=== PATIENT | female | born 1995 | race Caucasian/White ===

== ENCOUNTER 2019-11-24 17:55 | Emergency (ER) | payer OTHER ==
--- NOTE | 2019-11-24 18:26 | ED Physician Documentation ---
PD HPI ABD PAIN - Stated complaint Stated Complaint: ABD PX - Chief complaint Chief Complaint: Abd Pain - History obtained from History obtained from: Patient - Additional information Additional information: Patient comes emergency department complaining of low abdominal pain that is been going on for the bout the last 4 days. Patient states that the pain comes and goes randomly. Nothing seems to make it better or worse. Patient denies any fevers or chills. She states she was constipated but then took some laxatives and had a bit of diarrhea last night. Patient denies any nausea or vomiting. She does not feel sick necessarily. No vaginal symptoms of unusual discharge, discomfort, or bleeding. Patient states she has been on Depo-Provera shots for some time and was just updated yesterday. She states that she was not behind on her shots at that time. No dysuria or hematuria. No other complaints at this time Review of Systems Ten Systems: 10 systems reviewed and negative Constitutional: reports: Reviewed and negative Eyes: reports: Reviewed and negative Ears: reports: Reviewed and negative Nose: reports: Reviewed and negative Throat: reports: Reviewed and negative Cardiac: reports: Reviewed and negative Respiratory: reports: Reviewed and negative GI: reports: Abdominal Pain, Constipation, Diarrhea : denies: Dysuria, Frequency, Hesitancy, Discharge, Vaginal bleeding Skin: reports: Reviewed and negative Musculoskeletal: reports: Reviewed and negative Neurologic: reports: Reviewed and negative Psychiatric: reports: Reviewed and negative Endocrine: reports: Reviewed and negative Immunocompromised: reports: Reviewed and negative PD PAST MEDICAL HISTORY - Allergies Allergies/Adverse Reactions: Allergies Allergy/AdvReac Type Severity Reaction Status Date / Time No Known Drug Allergies Allergy Verified 11/24/19 18:09 PD ED PE NORMAL - Vitals Vital signs reviewed: Yes - General General: Alert and oriented X 3, No acute distress - HEENT HEENT: Atraumatic, PERRL, EOMI, Moist mucous membranes - Neck Neck: Supple, no meningeal sign - Cardiac Cardiac: RRR, No murmur - Respiratory Respiratory: No respiratory distress, Clear bilaterally - Abdomen Abdomen: Soft, Non distended, Other (Moderate suprapubic tenderness, no rebound or guarding.) - Back Back: No CVA TTP - Derm Derm: Normal color, Warm and dry, No rash - Extremities Extremities: No deformity, No edema - Neuro Neuro: Alert and oriented X 3, Other (Grossly normal) - Psych Psych: Normal mood, Normal affect Results - Vitals Vitals: Vital Signs - 24 hr 11/24/19 18:00 Temperature 36.7 C Heart Rate 73 Respiratory 16 Rate Blood Pressure 134/77 H O2 Saturation 98 Oxygen O2 Source Room air - Labs Labs: Laboratory Tests 11/24/19 11/24/19 11/24/19 18:40 18:40 18:40 WBC 9.7 RBC 4.27 Hgb 13.8 Hct 40.8 MCV 95.6 MCH 32.3 H MCHC 33.8 RDW 12.0 Plt Count 300 MPV 9.3 Neut # (Auto) 6.5 Lymph # (Auto) 1.8 [place] # (Auto) 0.9 Eos # (Auto) 0.4 Baso # (Auto) 0.1 Absolute Nucleated RBC 0.00 Nucleated RBC % 0.0 Sodium 138 Potassium 3.5 Chloride 101 Carbon Dioxide 27 Anion Gap 10.0 BUN 9 Creatinine 0.6 Estimated GFR (MDRD) 122 Glucose 94 Calcium 9.5 Total Bilirubin 0.9 AST 26 ALT 41 Alkaline Phosphatase 51 Total Protein 7.3 Albumin 4.4 Globulin 2.9 Albumin/Globulin Ratio 1.5 Urine Color YELLOW Urine Clarity CLEAR Urine pH 5.5 Ur Specific [place] 1.020 Urine Protein NEGATIVE Urine Glucose (UA) NEGATIVE Urine Ketones NEGATIVE Urine Occult Blood NEGATIVE Urine Nitrite NEGATIVE Urine Bilirubin NEGATIVE Urine Urobilinogen 0.2 (NORMAL) Ur Leukocyte Esterase NEGATIVE Ur Microscopic Review NOT INDICATED Urine Culture Comments NOT INDICATED Urine HCG, Qual NEGATIVE PD MEDICAL DECISION MAKING - ED course Complexity details: reviewed results, re-evaluated patient, considered differential, d/w patient ED course: Patient was worked up with labs and urinalysis, which were unremarkable. Patient was then worked up with CT of the abdomen and pelvis, which is pending at this time. Patient was signed out to the oncoming emergency physician at change of shift, pending this and final disposition. Departure - Departure Clinical Impression: Abdominal pain Qualifiers: Abdominal location: lower abdomen, unspecified Qualified Code(s): R10.30 - Lower abdominal pain, unspecified
[2019-11-24 18:45] LABS: BASOPHILS # (AUTO) 0.1 10^3/uL (0.0-0.1); BASOPHILS % (AUTO) 0.8 %; EOSINOPHILS # (AUTO) 0.4 10^3/uL (0.0-0.7); EOSINOPHILS % (AUTO) 3.6 %; HGB - HEMOGLOBIN 13.8 g/dL (12.0-16.0); LYMPHOCYTES # (AUTO) 1.8 10^3/uL (1.5-3.5); LYMPHOCYTES % (AUTO) 18.4 %; MEAN CORPUSCULAR HEMOGLOBIN 32.3 pg (27.0-31.0); MEAN CORPUSCULAR HGB CONC 33.8 g/dL (32.0-36.0); MEAN CORPUSCULAR VOLUME 95.6 fL (81.0-99.0); MEAN PLATELET VOLUME 9.3 fL (7.9-10.8); MONOCYTES # (AUTO) 0.9 10^3/uL (0.0-1.0); MONOCYTES % (AUTO) 9.5 %; NEUTROPHILS # (AUTO) 6.5 10^3/uL (1.5-6.6); NEUTROPHILS % (AUTO) 67.2 %; PLT - PLATELET COUNT 300 10^3/uL (130-450); RED BLOOD COUNT 4.27 10^6/uL (4.20-5.40); WHITE BLOOD COUNT 9.7 x10^3/uL (4.8-10.8)
[2019-11-24 18:47] LABS: BILIRUBIN,URINE NEGATIVE (NEGATIVE); GLUCOSE, URINE (UA) NEGATIVE (NEGATIVE); KETONES,URINE (UA) NEGATIVE (NEGATIVE); LEUKOCYTE ESTERASE, URINE NEGATIVE (NEGATIVE); NITRITE,URINE NEGATIVE (NEGATIVE); OCCULT BLOOD,URINE NEGATIVE (NEGATIVE); PH,URINE 5.5 PH (5.0-7.5); PROTEIN,URINE NEGATIVE (NEGATIVE); UROBILINOGEN,URINE 0.2 (NORMAL) E.U./dL (NORMAL)
[2019-11-24 18:48] LABS: CLARITY,URINE CLEAR (CLEAR)
[2019-11-24 18:49] LABS: HCG UR QUAL NEGATIVE
[2019-11-24 18:56] LABS: ALBUMIN 4.4 g/dL (3.2-5.5); ALBUMIN/GLOBULIN RATIO 1.5 (1.0-2.2); BILIRUBIN,TOTAL 0.9 mg/dL (0.2-1.0); CALCIUM 9.5 mg/dL (8.5-10.3); CREATININE 0.6 mg/dL (0.4-1.0); TOTAL PROTEIN 7.3 g/dL (6.7-8.2)
[2019-11-24] MEDS ORDERED: IOVERSOL 320 100 ML VIAL IVP ONE ×2 (19:18→19:34)
--- NOTE | 2019-11-24 19:50 | CT Report ---
PROCEDURE: Abdomen/Pelvis W INDICATIONS: low abd pain CONTRAST: IV CONTRAST: Optiray 320 ml: 100 PO CONTRAST: *NO PO CONTRAST TECHNIQUE: After the administration of intravenous contrast, 5 mm thick sections acquired from the diaphragms to the symphysis. 5 mm thick coronal and sagittal reformats were acquired. For radiation dose reducti on, the following was used: automated exposure control, adjustment of mA and/or kV according to stan ent size. COMPARISON: None. FINDINGS: Image quality: Excellent. ABDOMEN: Lung bases: Lung bases are clear. Heart size is normal. Solid organs: Liver and spleen are normal in size and enhancement. Gallbladder is unremarkable. Bi liary system is non dilated. Pancreas enhances normally. No adrenal nodules. Kidneys demonstrate n ormal size and enhancement, without hydronephrosis. Peritoneum and bowel: Bowel loops demonstrate normal wall thickness and caliber. No free fluid or a ir. Nodes and vessels: No retroperitoneal or mesenteric adenopathy by size criteria. Aorta and inferior vena cava are normal in size. Miscellaneous: No ventral hernias. PELVIS: Genitourinary: Bladder is partially decompressed. Question mild bladder wall thickening. Miscellaneous: No inguinal hernias or adenopathy. 3.2 cm left adnexal cyst. Bones: No suspicious bony lesions. No vertebral body compression fractures. IMPRESSION: 1. 3.2 cm left adnexal cyst. 2. Partially decompressed bladder with question of mild bladder wall thickening. 3. Otherwise unremarkable CT abdomen and pelvis. Reviewed by: Phillip Santos MD on 11/24/2019 7:48 PM PDT Approved by: Phillip Santos MD on 11/24/2019 7:48 PM PDT Station ID: [id number]
[2019-11-24] MEDS ORDERED: KETOROLAC 30 MG/ML VIAL IVP STA (20:12)
[2019-11-24] MEDS ORDERED: HYDROcod/ACET 5/325 Prepack 4 PO STA (20:12)
[2019-11-24 20:55] VITALS: BP 128/78
== END 2019-11-24 20:55 | disposition home or self-care (01) ==
LOC: ED 17:55
DX: R10.30 Lower abdominal pain, unspecified (principal); N83.202 Unspecified ovarian cyst, left side
CPT/HCPCS: 36415; 74177; 80053; 81003; 81025; 85025; 96374; 99284; Q9967; 81001; 87086

== ENCOUNTER 2022-08-02 16:13 | Emergency (ER) | payer OTHER ==
--- NOTE | 2022-08-02 16:39 | ED Physician Documentation ---
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 She was seen in 2019 CT scanning of the abdomen pelvis showed presence of ovarian cyst. Patient did have a follow-up ultrasound which confirmed the presence of a cyst. She has not had problems with this until the last 3 months where she has begun to develop pain during menstruation. She has pain worse if she attempts to urinate or defecate and today she is in severe pain. She was able to eat this morning and she has not had nausea or vomiting.She has not taking any pain medication for this specific incident. Review of Systems Constitutional: denies: Fever, Chills, Myalgias Eyes: denies: Decreased vision Ears: denies: Ear pain, Drainage/discharge Nose: denies: Rhinorrhea / runny nose, Congestion Throat: denies: Sore throat Cardiac: denies: Chest pain / pressure, Palpitations Respiratory: denies: Dyspnea, Cough GI: reports: Abdominal Pain, Nausea. denies: Vomiting, Constipation, Diarrhea : denies: Dysuria, Frequency, Incontinent, Hematuria Skin: denies: Rash Musculoskeletal: denies: Neck pain, Back pain, Extremity pain Neurologic: denies: Generalized weakness, Focal weakness, Numbness PD PAST MEDICAL HISTORY - Past Medical History DIRECTOR OF CAREER RESOURCES: Ovarian cysts - Past Surgical History Past Surgical History: No - Present Medications Home Medications: Ambulatory Orders Medication Instructions Recorded Confirmed Cetirizine [ZyrTEC] 10 mg PO DAILY 05/12/22 05/12/22 Montelukast [Singulair] 10 mg PO DAILY 05/12/22 05/12/22 - Allergies Allergies/Adverse Reactions: Allergies Allergy/AdvReac Type Severity Reaction Status Date / Time No Known Drug Allergies Allergy Verified 08/02/22 16:20 - Social History Does the pt smoke?: No Smoking Status: Never smoker Does the pt drink ETOH?: Yes Does the pt have substance abuse?: No - Immunizations Immunizations are current?: Yes - POLST Patient has POLST: No PD ED PE NORMAL - Vitals Vital signs reviewed: Yes (normal ) - General General: Alert and oriented X 3, Well developed/nourished, Other (27 y/o female laying in the position appears to winch in pain periodically) - Cardiac Cardiac: RRR, No murmur - Respiratory Respiratory: No respiratory distress, Clear bilaterally - Abdomen Abdomen: Soft, Non distended, No organomegaly, Other (RLQ tenderness to palpa tion with rebound tenderness. 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, No motor deficit, No sensory deficit, Normal speech Eye Opening: Spontaneous Motor: Obeys Commands Verbal: Oriented GCS Score: 15 - Psych Psych: Normal mood, Normal affect Results - Vitals Vitals: Vital Signs - 24 hr 08/02/22 16:17 Temperature 36.4 C L Heart Rate 64 Respiratory 16 Rate Blood Pressure 123/68 O2 Saturation 100 Oxygen O2 Source Room air - Labs Labs: Laboratory Tests 08/02/22 08/02/22 08/02/22 16:46 16:46 16:46 WBC 10.0 RBC 3.95 L Hgb 12.3 Hct 36.8 L MCV 93.2 MCH 31.1 H MCHC 33.4 RDW 12.1 Plt Count 331 MPV 10.1 Neut # (Auto) 6.6 Lymph # (Auto) 2.0 [place] # (Auto) 0.9 Eos # (Auto) 0.4 Baso # (Auto) 0.1 Absolute Nucleated RBC 0.00 Nucleated RBC % 0.0 Sodium 139 Potassium 3.6 Chloride 105 Carbon Dioxide 25 Anion Gap 9.0 BUN 9 Creatinine 0.5 Estimated GFR (MDRD) 147 Glucose 105 H Calcium 9.1 Total Bilirubin 1.0 AST 30 ALT 35 Alkaline Phosphatase 46 Total Protein 7.2 Albumin 4.3 Globulin 2.9 Albumin/Globulin Ratio 1.5 Lipase 27 Serum HCG, Qual NEGATIVE Urine Color Urine Clarity Urine pH Ur Specific [place] Urine Protein Urine Glucose (UA) Urine Ketones Urine Occult Blood Urine Nitrite Urine Bilirubin Urine Urobilinogen Ur Leukocyte Esterase Urine RBC Urine WBC Ur Squamous Epith Cells Urine Bacteria Ur Microscopic Review Urine Culture Comments 08/02/22 17:21 WBC RBC Hgb Hct MCV MCH MCHC RDW Plt Count MPV Neut # (Auto) Lymph # (Auto) [place] # (Auto) Eos # (Auto) Baso # (Auto) Absolute Nucleated RBC Nucleated RBC % Sodium Potassium Chloride Carbon Dioxide Anion Gap BUN Creatinine Estimated GFR (MDRD) Glucose Calcium Total Bilirubin AST ALT Alkaline Phosphatase Total Protein Albumin Globulin Albumin/Globulin Ratio Lipase Serum HCG, Qual Urine Color YELLOW Urine Clarity CLEAR Urine pH 7.0 Ur Specific [place] 1.015 Urine Protein NEGATIVE Urine Glucose (UA) NEGATIVE Urine Ketones NEGATIVE Urine Occult Blood MODERATE H Urine Nitrite NEGATIVE Urine Bilirubin NEGATIVE Urine Urobilinogen 0.2 (NORMAL) Ur Leukocyte Esterase NEGATIVE Urine RBC TNTC H Urine WBC 0-3 Ur Squamous Epith Cells RARE Squamous Urine Bacteria Rare Ur Microscopic Review INDICATED Urine Culture Comments NOT INDICATED PD Medical Decision Making - ED course Complexity details: reviewed old records, reviewed results, re-evaluated patient, considered differential, d/w patient Reviewed Lab Results: We reviewed a complete blood count showing a normal white blood cell count normal hemoglobin hematocrit and platelets chemistries showing normal electrolytes normal kidney and liver function a negative serum hCG and a urinalysis showing occult blood but without evidence of infection. Pt is currently menstrating. My interpretation of these results make the indication of appendicitis less likely and a more benign process such as ovarian cyst more likely. No evidence for ectopic . ED course: 27-year-old female with acute right lower quadrant abdominal and pelvic pain has a history of ovarian cyst. She appears to be having similar symptoms today. She appears to be in significant pain and ultrasound examination of the ovary has been ordered. I did not feel CT of the abdomen pelvis was indicated as I do not believe the patient is suffering from appendicitis. She has normal white blood cell count and has been eating normally today without nausea. She did have some improvement in her pain with use of Toradol. At shift change a ultrasound of the pelvis is pending and care is turned over to Dr. Patrick.
[2022-08-02 16:52] LABS: BASOPHILS # (AUTO) 0.1 10^3/uL (0.0-0.1); BASOPHILS % (AUTO) 0.8 %; EOSINOPHILS # (AUTO) 0.4 10^3/uL (0.0-0.7); HCT - HEMATOCRIT 36.8 % (37.0-47.0); HGB - HEMOGLOBIN 12.3 g/dL (12.0-16.0); LYMPHOCYTES % (AUTO) 19.8 %; MEAN CORPUSCULAR HEMOGLOBIN 31.1 pg (27.0-31.0); MEAN CORPUSCULAR HGB CONC 33.4 g/dL (32.0-36.0); MEAN CORPUSCULAR VOLUME 93.2 fL (81.0-99.0); MEAN PLATELET VOLUME 10.1 fL (7.9-10.8); MONOCYTES # (AUTO) 0.9 10^3/uL (0.0-1.0); MONOCYTES % (AUTO) 8.6 %; NEUTROPHILS # (AUTO) 6.6 10^3/uL (1.5-6.6); NEUTROPHILS % (AUTO) 66.5 %; PLT - PLATELET COUNT 331 10^3/uL (130-450); RED BLOOD COUNT 3.95 10^6/uL (4.20-5.40); RED CELL DISTRIBUTION WIDTH 12.1 % (12.0-15.0)
[2022-08-02] MEDS: KETOROLAC 30 MG/ML VIAL IVP STA (16:56)
[2022-08-02 17:04] LABS: ALBUMIN 4.3 g/dL (3.2-5.5); ALBUMIN/GLOBULIN RATIO 1.5 (1.0-2.2); CALCIUM 9.1 mg/dL (8.5-10.3); CREATININE 0.5 mg/dL (0.4-1.0); POTASSIUM 3.6 mmol/L (3.5-5.0); TOTAL PROTEIN 7.2 g/dL (6.7-8.2)
[2022-08-02 17:27] LABS: HCG,QUALITATIVE BLOOD NEGATIVE
[2022-08-02 17:28] LABS: BILIRUBIN,URINE NEGATIVE (NEGATIVE); GLUCOSE, URINE (UA) NEGATIVE (NEGATIVE); KETONES,URINE (UA) NEGATIVE (NEGATIVE); LEUKOCYTE ESTERASE, URINE NEGATIVE (NEGATIVE); NITRITE,URINE NEGATIVE (NEGATIVE); OCCULT BLOOD,URINE MODERATE (NEGATIVE); PROTEIN,URINE NEGATIVE (NEGATIVE); UROBILINOGEN,URINE 0.2 (NORMAL) E.U./dL (NORMAL)
[2022-08-02 17:30] LABS: CLARITY,URINE CLEAR (CLEAR)
[2022-08-02 17:39] LABS: BACTERIA,URINE Rare /HPF (None Seen); RBC,URINE TNTC /HPF (0-5); SQUAMOUS EPITHELIAL CELL,UR RARE Squamous (<= Few); WBC,URINE 0-3 /HPF (0-5)
--- NOTE | 2022-08-02 19:25 | ED Physician Documentation ---
ED Addendum - Addendum Addendum: 08/02/22 19:24 Signed out to me by Dr. Schreiber at 6 PM shift change. We are waiting for an ultrasound to be done. Briefly she has had right pelvic pain with each of her last 3 menses reliably that has lasted 2 days and then gone away. She does have a history ovarian cyst, no history of abdominal surgeries. Her CBC was unremarkable. test negative. Urinalysis notable for blood but she is on her menses. CMP normal. Preliminary read from the technologists regarding the ultrasound was diminished with right and small left ovarian cyst. The right ovarian cyst had some internal echoes. On reexamination at this point she is tender in the right pelvis but not at McBurney's point, well medial and inferior to that. We discussed the possibility of appendicitis. I do not think further work-up for that is necessary at this point but she was given close return preca utions. She was given for hydrocodone to go. Diagnosis: Pelvic pain with ovarian cyst Condition: Stable Disposition: Discharged home
[2022-08-02] MEDS: HYDROcod/ACET 5/325 Prepack 4 PO STA (19:31)
[2022-08-02 19:36] VITALS: BP 117/66
--- NOTE | 2022-08-02 20:04 | Ultrasound Report ---
PROCEDURE: Pelvic w/Transvag+Doppler Comp INDICATIONS: pelvic pain, R TECHNIQUE: Real-time scanning was performed of the pelvic organs, with image documentation. Additional endovagi nal scanning was necessary due to incomplete visualization of the adnexal and endometrial structures by transabdominal scanning. Doppler interrogation was performed of the ovaries bilaterally. COMPARISON: None. FINDINGS: Uterus: Uterus is anteverted and normal in size at 7.1 x 5.3 x 3.4 cm. The myometrium is homogeneou s. The endometrium measures 4-5 mm in combined thickness. Ovaries: The right ovary measures 4.1 x 2.2 x 2.8 cm, with a calculated ovarian volume of 13.4 cc. The left ovary measures 4.1 x 2.2 x 2.8 cm, with a calculated ovarian volume of 13.3 cc. Within each ovary, there are mildly complex cysts seen measuring up to 6 mm on the right and up to 11 mm on the left. Appropriate blood flow to the ovaries with Doppler interrogation. Less than 12 follicles can be see n in each ovary. No adnexal masses are seen. No cystic lesions measuring greater than 3 cm. Other: There is a mild amount of free pelvic fluid seen, which is considered to be within physiologi c limits. IMPRESSION: No significant acute abnormality is seen. Note: Concordant preliminary findings given by the staffing consultant upon the completion of the examination to Dr. Patrick at 7:00 PM on 08/02/2022. Reviewed by: Kamaljit Yanes MD on 08/02/2022 7:02 PM [facility]ER[facility] Approved by: Kamaljit Yanes MD on 08/02/2022 7:02 PM MAVER[facility] Station ID: [id number]
== END 2022-08-02 19:36 | disposition home or self-care (01) ==
LOC: ED 16:13
DX: N83.209 Unspecified ovarian cyst, unspecified side (principal)
CPT/HCPCS: 36415; 80053; 81001; 81003; 83690; 84703; 85025; 87086; 93975; 96374; 99283

== ENCOUNTER 2023-06-29 08:01 | Outpatient (CLI) | payer OTHER ==
--- NOTE | 2023-06-29 10:33 | Ultrasound Report ---
PROCEDURE: Pelvic w/Transvaginal INDICATIONS: OVARIAN CYST TECHNIQUE: Real-time scanning was performed of the pelvic organs, with image documentation. Additional endovagi nal scanning was necessary due to incomplete visualization of the adnexal and endometrial structures by transabdominal scanning. COMPARISON: Ultrasound 08/02/2022, CT 11/24/2019 FINDINGS: Uterus: Uterus is anteverted and normal in size at 8.2 x 3.3 x 4.6 cm. The myometrium is homogeneou s. The endometrium measures 3 mm in combined thickness. Ovaries: The right ovary measures 3.9 x 3.6 x 3.9 cm, with a calculated ovarian volume of 29 cc. Th e left ovary measures 4.3 x 2.6 x 3.7 cm, with a calculated ovarian volume of 22 cc. Right ovarian cy stic lesion with low-level internal echogenicity measuring 3.2 x 2.4 x 3.1 cm, new from prior. Prior right ovarian follicle is not visualized. New left hemorrhagic cyst measuring 3.2 x 1.4 x 1.9 cm. Other: No pathologic free abdominal or pelvic fluid. IMPRESSION: New bilateral ovarian cysts. The right-sided cyst likely represents an endometrioma versus a hemorrha gic cyst, measuring 3.2 x 2.4 x 3.1 cm. The left-sided cyst likely represents a hemorrhagic cyst, letty suring 3.2 x 1.4 x 1.9 cm. Consider follow-up in 6-12 weeks. The previously described ovarian follicles are not seen. Reviewed by: Erick Quintana MD on 06/29/2023 10:32 AM PDT Approved by: Erick Quintana MD on 06/29/2023 10:32 AM PDT Station ID: [id number]
== END 2023-06-29 08:02 | disposition home or self-care (01) ==
LOC: DI 08:01
PROVIDERS: ATTEND Nurse Practitioner
DX: N83.202 Unspecified ovarian cyst, left side (principal); N83.201 Unspecified ovarian cyst, right side

== ENCOUNTER 2023-08-10 07:02 | Outpatient (CLI) | payer OTHER ==
[2023-08-10] MEDS ORDERED: GADOTERATE MEGLUMINE 7.5 MMOL/15 ML VIAL ONE (07:05)
[2023-08-10] MEDS: GADOTERATE MEGLUMINE 7.5 MMOL/15 ML VIAL IVP ONE (13:47)
--- NOTE | 2023-08-10 15:09 | MRI Report ---
PROCEDURE: Pelvis W/WO INDICATIONS: OVARIAN CYST TECHNIQUE: Multiple sequences and planes were used to obtain MRI images of the pelvis with and withou t contrast using a gynecologic protocol. COMPARISON: 06/29/2023 FINDINGS: Image quality: Diagnostic Lower abdomen: No small bowel obstruction. No pathologic ascites. Bladder: Unremarkable Reproductive organs: Cervix appears unremarkable. The endometrium measures 9 mm. No pathologic juncti onal zone thickening. There are prominent bilateral ovaries, with more than 20 follicles per ovary. T he left ovary measures 3.3 x 2 cm and the right ovary measures 3.1 x 2.4 cm. In the central right ova ry, there is a intrinsically T1 hyperintense region measuring 1.5 cm. Mild pelvic free fluid is present, usually physiologic in this age group. On precontrast T1-weighted images, no definite sequelae of active deep pelvic endometriosis deposits. Ring contraceptive device. No pathologic enhancing lesion. Rectum: Unremarkable. Mild to moderate rectal gas and stool burden. Vessels and lymph nodes: No aneurysmal vessel or pathologic lymph nodes identified by size criteria Pelvic wall: Unremarkable Bones: No discrete enhancing focal osseous lesion. IMPRESSION: Unremarkable appearance of the uterus and cervix. Intrinsic T1 signal within the central portion of the right ovary that measures 1.5 cm, smaller than the sonographic abnormality. This likely represents a involuting hemorrhagic cyst given size decrease . Prominent bilateral ovaries, with more than 20 follicles per ovary of varying densities. This can sometimes be seen with polycystic ovarian syndrome depending on clinical and laboratory amira elation. Consider further imaging ultrasound follow-up at clinical discretion. Other findings above. Reviewed by: Jerardo Reeder MD on 08/10/2023 3:07 PM PDT Approved by: Jerardo Reeder MD on 08/10/2023 3:07 PM PDT Station ID: [id number]
== END 2023-08-10 07:03 | disposition home or self-care (01) ==
LOC: DI 07:02
PROVIDERS: ATTEND Nurse Practitioner
DX: R10.2 Pelvic and perineal pain (principal); Z87.42 Personal history of other diseases of the female genital tract